=== PATIENT | female | born 1950 | race Caucasian/White ===

== ENCOUNTER 2016-11-02 16:40 | Outpatient (CLI) | payer OTHER, BC ==
--- NOTE | 2016-11-02 17:51 | DIAGNOSTIC IMAGING REPORT ---
PROCEDURE: CT ABDOMEN/PELVIS W/O CONTRAST INDICATION: Left abdominal pain. TECHNIQUE: Study was originally ordered as a CT with contrast. However, venous access could not be obtained. Because of this, noncontrast axial images were obtained with sagittal and coronal reformations. COMPARISON: None. FINDINGS: ABDOMEN: There is moderate to marked inflammation of a 5 cm segment of the mid descending colon superimposed on moderate diverticulosis. There is no evidence of perforation or abscess. There is no evidence of free air. Bowel pattern is otherwise normal, including appendix. Cholecystectomy (surgical clips). Liver, spleen, pancreas, kidneys, and aorta are normal. Moderate degenerative changes of the lower lumbar spine. PELVIS: Mild diverticulosis of the sigmoid colon. Uterus and adnexal structures are normal. There is a small amount of free fluid in the pelvis. IMPRESSION: 1. Moderate to marked acute inflammation of the descending colon superimposed on moderate diverticulosis. Findings are compatible with acute diverticulitis. 2. No evidence of abscess or perforation. 3. Small amount of free fluid in the pelvis. 4. Status post cholecystectomy. 5. Findings discussed with the patient and called to JU[facility] Mon[facility]. All CT scans at this facility use dose modulation, iterative reconstruction, and/or weight-based dosing when appropriate to reduce radiation dose to as low as reasonably achievable.
== END 2016-11-02 23:00 ==
LOC: CT SRH 16:40
DX: R10.32 Left lower quadrant pain (principal); K57.30 Diverticulosis of large intestine without perforation or abscess without bleeding